=== PATIENT | female | born 1970 | race Caucasian/White ===

== ENCOUNTER 2017-03-01 11:44 | Emergency (ER) | payer BC ==
[2017-03-01 12:06] LABS: COLOR YELLOW; LEUKOCYTE ESTERASE,URINE NEGATIVE (NEGATIVE); NITRITE,URINE NEGATIVE (NEGATIVE)
[2017-03-01] MEDS ORDERED: NS 1,000 ML IV ONE (12:08)
[2017-03-01] MEDS ORDERED: HYOSCYAMINE SULFATE 0.125 MG TAB PO ONE (12:09)
--- NOTE | 2017-03-01 12:17 | EDPHY ---
H & P Stated Complaint: groin pain intermittently for 2 years Time Seen by Provider: 03/01/17 11:52 HPI/ROS: This patient complains of lower abdominal pain that feels achy in nature and sharper with movement. She reports that she has had this pain intermittently for 2 years but has worsened over the past few days particularly since last night. She now reports the peak intensity of 8/10. She usually has relief with ibuprofen, but she tried ibuprofen last night without significant relief of her symptoms. The patient states that the location of the pain is suprapubic , radiating to bilateral lower quadrants. The pain has been constant over the past few days. She notes no associated symptoms. She believes she is currently ovulating and has had some discomfort with ovulation the past, but never to this degree. She does not think that this current pain is from ovulation. Her Last menstrual period was 2 weeks ago. She drove herself here by private vehicle for further evaluation of her symptoms due to the worsening of the intensity. ROS: No fevers or chills. No significant fatigue. HEENT: No URI complaints or other Pulmonary: No coughing. No shortness of breath. No pleuritic pain. Cardiovascular: No chest pain. No heart palpitations. No lightheadedness. GI: She denies any significant constipation. Her baseline bowel movements are once every other day with no change recently no change in consistency or color of her stools either. No upper belly pain. No nausea or vomiting. : No urinary symptoms. No vaginal discharge. Last menstrual. Normal timing 2 weeks ago. Integumentary: No skin rash Endocrine: No complaints Complete review of symptoms otherwise negative Source: Patient Exam Limitations: No limitations - Personal History Current Tetanus Diphtheria and Acellular Pertussis (TDAP): Yes Tetanus Vaccine Date: unsure - Medical/Surgical History PMH: Past surgical history: Cholecystectomy 3 C sections, most recent 8 years ago Patient reports 1 prior visit to our facility in 2009 for similar symptoms of lesser intensity and had a CT scan during that visit. Review of the CT scan revealed a 2 cm ovarian cyst. Question of mesenteric adenitis as well at that time and sacroiliitis. Hx Asthma: No Hx Chronic Respiratory Disease: No Hx Diabetes: No Hx Cardiac Disease: No Hx Renal Disease: No Hx Cirrhosis: No Hx Alcoholism: No Hx HIV/AIDS: No Hx Splenectomy or Spleen Trauma: No Other PMH: ovarian cyst - Family History Significant Family History: No pertinent family hx - Social History Smoking Status: Never smoked Alcohol Use: Occasionally Drug Use: None - Physical Exam Exam: General Appearance: Pleasant 47-year-old female Alert, no distress. Eyes: Pupils equal and round no pallor or injection. ENT, Mouth: Mucous membranes moist. Respiratory: There are no retractions, lungs are clear to auscultation. Cardiovascular: Regular rate and rhythm. Gastrointestinal: Hyperactive bowel sounds, soft, mild/minimal right lower quadrant more than suprapubic tenderness with no guarding or rebound. C- section scars are clean dry intact. Back: No CVA tenderness. No muscular tenderness. No midline tenderness. Pelvis: No pain with AP compression or a P compression at the pubic symphysis. Neurological: GCS 15. Skin: Warm and dry, no rashes. Musculoskeletal: Neck is supple nontender. Extremities are symmetrical, full range of motion. Psychiatric: Mood and affect normal. DIFFERENTIAL DIAGNOSIS: After history and physical exam differential diagnosis was considered for postop surgical adhesions from multiple C-sections with increased bowel motility from virus or food intolerance, cystitis, , ectopic , constipation, mesenteric adenitis, ovarian cyst Constitutional: Initial Vital Signs Temperature (C) 36.8 C 03/01/17 11:56 Heart Rate 95 03/01/17 11:56 Respiratory Rate 16 03/01/17 11:56 Blood Pressure 159/96 H 03/01/17 11:56 O2 Sat (%) 96 03/01/17 11:56 O2 Delivery Mode Room Air Allergies/Adverse Reactions: No Known Allergies Allergy (Verified 03/01/17 12:38) Home Medications: Medication Instructions Recorded HYOSCYAMINE SULFATE [LEVSIN-SL] 0.125 - 0.25 mg SL Q6 PRN #12 03/01/17 tab.subl Nitrofurantoin Macrobid [Macrobid 100 mg PO BID #10 cap 03/01/17 100 mg (RX)] Medical Decision Making ED Course/Re-evaluation: IV Labs and Levsin sublingual Discussion: While they specimen does have some epis, with 15 white cells per high-power field and bacteria as well as positive leuk esterase suggest cystitis in this patient. I counseled her regarding this. She is treated with 1st dose of Macrobid. She also a as mentioned in physical exam is hyperactive bowel sounds with history of multiple bowel surgeries bring a possibility of potential crampy pain from increased bowel motility with mesenteric adhesions. She has normal CBC. Not think she has appendicitis. She has a benign belly exam currently. He ruled out with a negative test. I did add a urine culture because the chronicity of her symptoms and the borderline findings of her urinalysis for UTI Patient understands the need to follow up with primary care physician. She will return if she develops any significant worsening or symptoms despite treatment plan. - Data Points Laboratory Results: Laboratory Results 03/01/17 12:25 03/01/17 12:25 Medications Given: Discontinued Medications Hyoscyamine Sulfate (Levsin, Hyomax-Sl) 0.125 mg PO EDNOW ONE Stop: 03/01/17 12:10 Last Admin: 03/01/17 12:39 Dose: 0.125 mg Sodium Chloride (Ns) 1,000 mls @ 0 mls/hr IV EDNOW ONE; Wide Open PRN Reason: Protocol Stop: 03/01/17 12:09 Last Admin: 03/01/17 12:39 Dose: 1,000 mls Nitrofurantoin Macrocrystals (Macrobid) 100 mg PO EDNOW ONE PRN Reason: Protocol Stop: 03/01/17 12:36 Last Admin: 03/01/17 12:44 Dose: 100 mg Departure - Departure Disposition: Home, Routine, Self-Care Clinical Impression: Cystitis, Lower abdominal pain Condition: Good Instructions: Urinary Tract Infection in Women (ED), Acute Abdominal Pain (ED) Additional Instructions: Diagnoses: 1. Lower abdominal pain 2. Cystitis Plan: Macrobid/nitrofurantoin antibiotic as prescribed Drink plenty fluids If you still have ongoing pain, try Levsin as prescribed Tylenol and ibuprofen in addition if needed Follow up with Dr. Castellano to establish primary care physician. Return for any significant worsening despite the treatment plan Referrals: NONE *PRIMARY CARE P,. [Primary Care Provider] - As per Instructions Levi Castellano MD [[facility] [place] [facility] [place] - As per Instructions Prescriptions: HYOSCYAMINE SULFATE [LEVSIN-SL] 0.125 - 0.25 mg SL Q6 PRN #12 tab.subl PRN Reason: abd cramping Nitrofurantoin Macrobid [Macrobid 100 mg (RX)] 100 mg PO BID #10 cap
[2017-03-01 12:22] LABS: BACTERIA 1+ /hpf (NONE SEEN); GRANULAR CASTS 0-1 /lpf (0-1); MUCUS 2+ /lpf (NONE-1+); RBC,URINE 0-1 /hpf (0-3); YEAST 1+ /hpf (NONE SEEN)
[2017-03-01 12:31] VITALS: TEMP 98.2; O2SAT 96
[2017-03-01 12:34] LABS: % IMMATURE GRANULYOCYTES 0.3 % (0.0-1.1); ABSOLUTE IMMATURE GRANULOCYTES 0.02 10^3/uL (0.00-0.10); ADD DIFF? NO; ADD MORPH? NO; ADD SCAN? NO; ATYPICAL LYMPHOCYTE FLAG 0 (0-99); FRAGMENT RBC FLAG 0 (0-99); HEMATOCRIT 37.3 % (38.0-47.0); HEMOGLOBIN 13.3 g/dL (12.6-16.3); LEFT SHIFT FLG 0 (0-99); LIPEMIA HEMOLYSIS FLAG 90 (0-99); MEAN CELL HEMOGLOBIN 30.9 pg (27.9-34.1); MEAN CELL HEMOGLOBIN CONCENTR. 35.7 g/dL (32.4-36.7); MEAN CELL VOLUME 86.7 fL (81.5-99.8); MEAN PLATELET VOLUME 9.5 fL (8.7-11.7); PLATELET CLUMPS FLAG 0 (0-99); PLATELET COUNT 326 10^3/uL (150-400); RED CELL DISTRIBUTION WIDTH 12.2 % (11.5-15.2)
[2017-03-01] MEDS ORDERED: NITROFURANTOIN MACROBID 100 MG CAP PO ONE (12:35)
[2017-03-01 12:45] LABS: ANION GAP 12 mEq/L (8-16); CALCIUM 8.8 mg/dL (8.5-10.4); CARBON DIOXIDE 24 mEq/l (22-31); CHLORIDE 106 mEq/L (97-110); CREATININE 0.6 mg/dL (0.6-1.0); GLOMERULAR FILTRATION RATE > 60; GLUCOSE 95 mg/dL (70-100); SODIUM 142 mEq/L (134-144)
[2017-03-01 13:52] VITALS: BP 144/88; PULSE 92; RESP 14
== END 2017-03-01 13:51 | disposition home or self-care (01) ==
LOC: CED 11:44
DX: N30.90 Cystitis, unspecified without hematuria (principal); B96.89 Other specified bacterial agents as the cause of diseases classified elsewhere; Z90.49 Acquired absence of other specified parts of digestive tract
CPT/HCPCS: 80048-PO; 81003-PO; 81015-PO; 84703-PO; 85025-PO